=== PATIENT | female | born 1995 | race American Indian/Alaskan Native ===

== ENCOUNTER 2017-07-08 16:16 | Emergency (ER) | payer OTHER ==
[2017-07-08 16:54] LABS: Bilirubin,Urine NEG (Negative); Blood,Urine NEG (Negative); Ketones,Urine NEG (Negative); Leukocyte Esterase,Urine NEG (Negative); Mucus,Urine FEW /HPF; Nitrite,Urine NEG (Negative); Protein,Urine <15 mg/dL mg/dL (Negative); Urobilinogen,Urine < 2.0 mg/dL (<2.0); WBC,Urine < 1.0 /HPF (0.0-6.0)
[2017-07-08 17:33] LABS: Alanine Aminotransferase 17 units/L (7-56); Albumin 4.2 g/dL (3.9-5); Albumin/Globulin Ratio 1.4 %; Alkaline Phosphatase 73 units/L (35-129); Anion Gap 19 mmol/L; BUN/Creatinine Ratio 17; Bilirubin,Total < 0.20 mg/dL (0.1-1.2); Blood Urea Nitrogen 12 mg/dL (7-17); Calcium 9.4 mg/dL (8.4-10.2); Carbon Dioxide 23 mmol/L (22-30); Glucose 87 mg/dL (65-100); Lipase 32 units/L (13-60); Potassium 4.3 mmol/L (3.6-5.0); Sodium 138 mmol/L (137-145); Total Protein 7.3 g/dL (6.3-8.2)
[2017-07-08 17:42] LABS: Basophils % (Auto) 0.5 % (0.0-1.8); Eosinophils % (Auto) 1.6 % (0.0-4.3); Hematocrit 35.6 % (30.3-42.9); Hemoglobin 11.3 gm/dl (10.1-14.3); Mean Corpuscular HGB Conc 32 % (30-34); Mean Corpuscular Volume 72 fl (79-97); Platelet Count 322 K/mm3 (140-440); Red Blood Count 4.97 M/mm3 (3.65-5.03); Red Cell Distribution Width 17.6 % (13.2-15.2); White Blood Count 9.4 K/mm3 (4.5-11.0)
[2017-07-08 17:57] LABS: Mean Corpuscular Hemoglobin 23 pg (28-32)
--- NOTE | 2017-07-08 22:43 | Emergency Department Report ---
ED Abdominal Pain HPI - General Chief Complaint: Abdominal Pain Stated Complaint: ABDOMINAL PAIN Time Seen by Provider: 07/08/17 22:36 Source: patient Mode of arrival: Ambulatory Limitations: No Limitations - History of Present Illness Initial Comments: 21 YO FEMALE WITH ABDOMINAL PAIN FOR 2 WEEKS , SHARP WELL CRAMPING, INCREASED FREQUENCY BUT NO PAIN OR BURNING UPON URINATION,NO VAGINAL DISCHARGE OR BLEEDING. NO PAIN UPON EXAM. MD Complaint: abdominal pain -: Gradual Location: LLQ, RLQ, suprapubic Radiation: none Migration to: no migration Severity scale (0 -10): 2 Quality: other (CRAMPING) Consistency: intermittent Improves With: nothing Worsens With: nothing Associated Symptoms: denies other symptoms - Related Data Allergies Allergy/AdvReac Type Severity Reaction Status Date / Time banana Allergy Shortness Verified 07/08/17 16:21 of Breath raspberry Allergy Rash Verified 07/08/17 16:21 ED Review of Systems ROS: Stated complaint: ABDOMINAL PAIN Other details as noted in HPI Constitutional: denies: chills, fever Eyes: denies: eye pain, eye discharge, vision change ENT: denies: ear pain, throat pain Respiratory: denies: cough, shortness of breath, wheezing Cardiovascular: denies: chest pain, palpitations Endocrine: no symptoms reported Gastrointestinal: abdominal pain (CRAMPING). denies: nausea, diarrhea Genitourinary: denies: urgency, dysuria, discharge Musculoskeletal: denies: back pain, joint swelling, arthralgia Skin: denies: rash, lesions Neurological: denies: headache, weakness, paresthesias Psychiatric: denies: anxiety, depression Hematological/Lymphatic: denies: easy bleeding, easy bruising ED Past Medical Hx - Past Medical History Previous Medical History?: No - Surgical History Past Surgical History?: No - Social History Smoking Status: Never Smoker Substance Use Type: None ED Physical Exam - General Limitations: No Limitations General appearance: alert, in no apparent distress - Head Head exam: Present: atraumatic, normocephalic - Eye Eye exam: Present: normal appearance, EOMI - ENT ENT exam: Present: mucous membranes moist - Neck Neck exam: Present: normal inspection - Respiratory Respiratory exam: Present: normal lung sounds bilaterally. Absent: respiratory distress, wheezes, rales - Cardiovascular Cardiovascular Exam: Present: regular rate, normal rhythm, normal heart sounds. Absent: systolic murmur, diastolic murmur, rubs, gallop - GI/Abdominal GI/Abdominal exam: Present: soft, normal bowel sounds. Absent: distended, tenderness, guarding, rebound - Rectal Rectal exam: Present: deferred - Extremities Exam Extremities exam: Present: normal inspection, full ROM - Back Exam Back exam: Present: normal inspection - Neurological Exam Neurological exam: Present: alert, oriented X3 - Psychiatric Psychiatric exam: Present: normal affect, normal mood - Skin Skin exam: Present: warm, dry, intact, normal color. Absent: rash ED Course Vital Signs 07/08/17 16:22 Temperature 98.4 F Pulse Rate 91 H Respiratory 16 Rate Blood Pressure 132/85 O2 Sat by Pulse 98 Oximetry - Reevaluation(s) Reevaluation #1: 07/08/17 22:55 PT IS REFUSING THE PELVIC EXAM FOR WET PREP AND GC/CT. ED Medical Decision Making - Lab Data Result diagrams: 07/08/17 16:39 07/08/17 16:39 - Radiology Data Radiology results: report reviewed (,EDC 02/21/2018) Critical care attestation.: If time is entered above; I have spent that time in minutes in the direct care of this critically ill patient, excluding procedure time. ED Disposition Clinical Impression: Round ligament pain Qualifiers: Weeks of gestation: less than 8 weeks Qualified Code(s): Z3A.01 - Less than 8 weeks gestation of Disposition: TO HOME OR SELFCARE Is pt being admited?: No Does the pt Need Aspirin: No Condition: Stable Instructions: (ED), Abdominal Pain (ED) Additional Instructions: PLEASE FOLLOW UP WITH YOUR MIXING OPERATOR OR DR VOGEL SOON POSSIBLE. Referrals: PRIMARY MD KAYLEE [Primary Care Provider] - 3-5 Days JASMIN VOGEL MD [Staff Physician] - 3-5 Days Time of Disposition: 23:01
--- NOTE | 2017-07-08 23:06 | Ultrasound Report ---
FINAL REPORT PROCEDURE: US OB < = 14 WEEKS FETUS TECHNIQUE: Real-time transabdominal and transvaginal sonography of the uterus, placenta, amniotic fluid, adnexa, and fetus was performed with image documentation. Measurements were obtained to determine age/size. M-mode Doppler was used to document heartbeat. [place] 63850 [place] [address] HISTORY: COMPARISON: No prior studies are available for comparison. FINDINGS: ADDITIONAL GESTATION: None. Single live intrauterine is seen with crown-rump length of 12.1 millimeters. This corresponds to 7 weeks 3 days gestational age. Estimated date of delivery based on this measurement is February 21, 2018. heart rate is 143 beats per minute. Right ovary measures 4.3 x 3.5 x 3.2 cm. Left ovary measures 3.1 x 2.4 x 1.5 cm. No adnexal masses are seen. Trace free pelvic fluid is seen. Cervix appears closed. IMPRESSION: 1. Single live intrauterine gestation at approximately 7 weeks 3 days. 2. EDC by US February 21 2018. 3. Complete anatomic survey at 18-20 weeks suggested.
--- NOTE | 2017-07-08 23:07 | Ultrasound Report ---
FINAL REPORT PROCEDURE: US OB TRANSVAGINAL TECHNIQUE: Real-time transabdominal and transvaginal sonography of the uterus, placenta, amniotic fluid, adnexa, and fetus was performed with image documentation. Measurements were obtained to determine age/size. M-mode Doppler was used to document heartbeat. CPT 59025 and 60293 HISTORY: COMPARISON: No prior studies are available for comparison. FINDINGS: ADDITIONAL GESTATION: None. Single live intrauterine is seen with crown-rump length of 12.1 millimeters. This corresponds to 7 weeks 3 days gestational age. Estimated date of delivery based on this measurement is February 21, 2018. heart rate is 143 beats per minute. Right ovary measures 4.3 x 3.5 x 3.2 cm. Left ovary measures 3.1 x 2.4 x 1.5 cm. No adnexal masses are seen. Trace free pelvic fluid is seen. Cervix appears closed. IMPRESSION: 1. Single live intrauterine gestation at approximately 7 weeks 3 days. 2. EDC by US February 21, 2018 3. Complete anatomic survey at 18-20 weeks suggested.
[2017-07-09 01:13] VITALS: BP 129/81
== END 2017-07-09 00:31 | disposition home or self-care (01) ==
LOC: ED 16:16
DX: O26.891 Other specified pregnancy related conditions, first trimester (principal); R10.30 Lower abdominal pain, unspecified; Z3A.01 Less than 8 weeks gestation of pregnancy; Z91.018 Allergy to other foods
CPT/HCPCS: 36415; 76801; 76817; 80053; 81001; 81025; 83690; 84702; 85025; 99284